=== PATIENT | male | born 1970 | race Caucasian/White ===

== ENCOUNTER 2017-02-01 19:23 | Emergency (ER) | payer OTHER ==
[2017-02-01 19:38] VITALS: BP 115/60; PULSE 72; RESP 16; TEMP 98.3; O2SAT 100
[2017-02-01] MEDS ORDERED: Fluorescein 1 mg Ophthalmic Strip ONE (20:00)
--- NOTE | 2017-02-01 20:03 | ED PDOC ---
HPI: Eye Injury/Pain Time Seen by Provider: 02/01/17 19:49 Chief Complaint (Nursing): Eye Problem Chief Complaint (Provider): Eye Problem History Per: Patient History/Exam Limitations: no limitations Onset/Duration Of Symptoms: Days (x2) Current Symptoms Are (Timing): Still Present Additional Complaint(s): Jacobo Medel is a 46 year old male who presents to the emergency department with a complaint of right eye swelling associated with watery discharge and blurry vision ongoing since yesterday afternoon. He denies any known insect bites, injury or trauma. Patient stated he took Yuliet but this did not help. He does not wear contact lenses or glasses. Denies any fever or chills. PMD: none provided Past Medical History Reviewed: Historical Data, Nursing Documentation, Vital Signs Vital Signs: Last Vital Signs Temp 98.3 F 02/01/17 19:37 Pulse 72 02/01/17 19:37 Resp 16 02/01/17 19:37 BP 115/60 02/01/17 19:37 Pulse Ox 100 02/01/17 19:37 - Medical History PMH: Pancreatitis (history of ) - Surgical History Surgical History: Hernia Repair - Family History Family History: States: No Known Family Hx - Living Arrangements Living Arrangements: With Family - Social History Current smoker - smoking cessation education provided: No Alcohol: None Drugs: Denies - Immunization History Hx Tetanus Toxoid Vaccination: Yes - Home Medications Home Medications: Ambulatory Orders Medication Instructions Recorded Dicyclomine [Bentyl] 20 mg PO Q12 PRN #20 tab 05/05/15 Clindamycin [Cleocin] 300 mg PO TID #21 cap 02/01/17 Prednisone 50 mg PO DAILY #5 tablet 02/01/17 Tobramycin [Tobrex] 5 ml TOP QID #1 bottle 02/01/17 - Allergies Allergies/Adverse Reactions: Allergies Allergy/AdvReac Type Severity Reaction Status Date / Time Penicillins Allergy RASH Verified 02/01/17 19:37 Review of Systems ROS Statement: Except As Marked, All Systems Reviewed And Found Negative Eyes: Positive for: Vision Change (blurry), Other (Right eye swelling associated with watery discharge) Neurological: Negative for: Headache, Dizziness Physical Exam - Reviewed Nursing Documentation Reviewed: Yes Vital Signs Reviewed: Yes - Physical Exam Appears: Positive for: Well, Non-toxic, No Acute Distress Head Exam: Positive for: ATRAUMATIC, NORMAL INSPECTION, NORMOCEPHALIC Eye Exam: Positive for: EOMI, PERRL, Periorbital swelling (and erythema of right upper eyelid), Conjunctival injection (right eye). Negative for: Normal appearance Cardiovascular/Chest: Positive for: Regular Rate, Rhythm Respiratory: Positive for: Normal Breath Sounds Neurologic/Psych: Positive for: Alert, Oriented - ECG O2 Sat by Pulse Oximetry: 100 (RA) Pulse Ox Interpretation: Normal Medical Decision Making Medical Decision Making: Initial Impression: Blepharitis and conjunctivitis of right eye Initial Plan: * Cleocin 300mg PO * Methylprednisolone 125mg IM Examination with fluorescein strip and tetracaine drops indicates corneal abrasion centrally, no foreign body. Patient given prescriptions for tobramycin ophthalmic, prednisone and clindamycin. He was advised to take [id number] Advil for pain relief as needed and was referred to ophthalmology on-call for follow-up in 1-2 days. Scribe Attestation: Documented by Charity Traylor, acting as a scribe for Joanie Singleton PA-C. Provider Scribe Attestation: All medical record entries made by the Scribe were at my direction and personally dictated by me. I have reviewed the chart and agree that the record accurately reflects my personal performance of the history, physical exam, medical decision making, and the department course for this patient. I have also personally directed, reviewed, and agree with the discharge instructions and disposition. Disposition - Clinical Impression Clinical Impression: Blepharitis, Conjunctivitis, Corneal abrasion - Patient ED Disposition Is Patient to be Admitted: No Counseled Patient/Family Regarding: Diagnosis, Need For Followup, Rx Given - Disposition Referrals: Mo Singh MD [Staff Provider] - Disposition: Routine/Home Disposition Time: 20:12 Condition: STABLE Additional Instructions: Take rx meds as directed. Take over the counter advil as needed for pain. Apply warm compresses to affected area. Follow up in 1-2 days with fiscal specialist. Prescriptions: Clindamycin [Cleocin] 300 mg PO TID #21 cap Prednisone 50 mg PO DAILY #5 tablet Tobramycin [Tobrex] 5 ml TOP QID #1 bottle Instructions: Blepharitis (ED), Conjunctivitis (ED), Corneal Abrasion (ED) Forms: [facility] ([place]rainian)
== END 2017-02-01 20:36 | disposition home or self-care (01) ==
LOC: H.ER 19:23
DX: H01.001 Unspecified blepharitis right upper eyelid (principal); H10.9 Unspecified conjunctivitis; K85.90 Acute pancreatitis without necrosis or infection, unspecified; Z88.0 Allergy status to penicillin